=== PATIENT | male | born 1990 | race Caucasian/White ===

== ENCOUNTER 2016-03-21 20:15 | Emergency (ER) | payer BC ==
[~2016-03-21] VITALS: Ht 188 cm; Wt 78.5 kg
[~2016-03-21 20:15] MED LIST: HYDR0.1S10 PO; ONDA8TAB62 SL
[2016-03-21 20:17] VITALS: TEMP 36.8; Ht 188 cm; Wt 78.5 kg
[2016-03-21] MEDS ORDERED: MESA10002 PR (20:46)
[2016-03-21] MEDS ORDERED: IBUP-1050 PO (20:48)
[2016-03-21] MEDS ORDERED: ONDANSETRON INJ 2 MG/ML 2 ML VIAL IV STA (21:38)
[2016-03-21] MEDS ORDERED: SODIUM CHLORIDE 0.9% 1000ML 1,000 ML IV STA ×2 (21:38)
[2016-03-21] MEDS ORDERED: OPTIRAY 320 IV PRN (21:45)
[2016-03-21] MEDS ORDERED: PANTOprazole INJ 80 MG in DEXTROSE 5% 100ML IV STA (21:49)
[2016-03-21 21:57] VITALS: O2SAT 98
[2016-03-21 22:00] LABS: BASO % 0.9 %; BASO ABS # 0.05 K/uL (0-0.2); COMPLETE YES; EOS % 2.6 %; HEMATOCRIT 44.8 % (42-52); IG% 0.2 %; LYMPH % 31.6 %; LYMPH ABS # 1.68 K/uL (1.2-3.4); MEAN CELL VOLUME 90.9 fL (80-100); MEAN CORPUSCULAR HGB CONC 35.3 g/dl (32-36); MEAN PLATELET VOLUME 9.8 fL (7.4-10.4); MONO % 10.2 %; NEUT % 54.5 %; PLATELET COUNT 272 K/uL (130-400); RED BLOOD COUNT 4.93 M/uL (4.7-6.1); WHITE BLOOD COUNT 5.32 K/uL (4.8-10.8)
[2016-03-21] MEDS ORDERED: PANTOprazole INJ 40 MG in DEXTROSE 5% 100ML IV SCH (22:00)
[2016-03-21 22:07] LABS: ALT/SGPT 18 U/L (12-78); BLOOD UREA NITROGEN 11 mg/dl (7-18); BUN/CREATININE RATIO 12.4 (10-20); C-REACTIVE PROTEIN < 0.29 mg/dl (0-0.29); CALCIUM 9.5 mg/dl (8.5-10.1); CARBON DIOXIDE 25 mmol/L (21-32); CHLORIDE 107 mmol/L (98-107); CREATININE 0.89 mg/dl (0.60-1.40); GLUCOSE 86 mg/dl (70-99); POTASSIUM 3.6 mmol/L (3.5-5.1); SODIUM 140 mmol/L (136-145)
[2016-03-21 22:10] LABS: INR 1.1 (0.9-1.1); PARTIAL THROMBOPLASTIN RATIO 1.1; PROTHROMBIN TIME (PATIENT) 11.4 SECONDS (9.0-12.0)
[2016-03-21 22:11] LABS: ALKALINE PHOSPHATASE 74 U/L (45-117); AST/SGOT 23 U/L (15-37)
[2016-03-21 23:13] LABS: URINE APPEARANCE CLEAR (CLEAR); URINE BILIRUBIN NEG (NEG); URINE COLOR YELLOW; URINE NITRITE NEG (NEG); URINE SPECIFIC GRAVITY 1.019 (1.000-1.030); UROBILINOGEN NEG (NEG)
[2016-03-21 23:14] LABS: MANUAL MICROSCOPIC REQUIRED? NO; REVIEW REQ? NO
[2016-03-22] MEDS ORDERED: PANT40TA PO (01:46)
--- NOTE | 2016-03-22 01:46 | EMERGENCY ROOM VISIT NOTE ---
History First contact with patient: 21:28 Chief Complaint: ABDOMINAL PAIN Stated Complaint: BLOOD IN STOOL,LIGHTHEADED,VOMITING SOME BLOOD History of Present Illness The patient is a 25 year old male who presents to the Emergency Room with complaints of blood and mucus in stool that is brown stool who vomited today that had some red foam to it and was dark in nature. Patient also feels lightheaded and has some left-sided abdominal pain. Patient has ulcerative colitis but has not been following up as scheduled as he cannot financially afford it. He follows with Uma[facility] PATH[facility]. Patient describes a dull pain as aching , ranging in severity 5 out of 10. Nothing makes it better or worse. Patient drank a lot of coffee. No black stool. No other episodes of vomiting. No diarrhea. No recent antibiotics. Colonoscopy last year showed some polyps. Patient occasionally takes his ulcerative colitis medication but has difficulties financially afford it. Patient denies chest pain, dyspnea, fever, chills, diarrhea, urinary symptoms. Review of Systems See HPI for pertinent positives & negatives. A total of 10 systems reviewed and were otherwise negative. Past Medical/Surgical History Medical Problems: (1) Seizures (2) Stomach problems (3) Ulcerative colitis Surgical Problems: (1) H/O colonoscopy (2) History of wisdom tooth extraction (3) S/P tonsillectomy Family History Cancer Diabetes mellitus Gallbladder disease Heart disease Hypertension Kidney disease Kidney stones Lung disease Seizures Social History Smoking Status: Former Smoker Alcohol Use: occasionally Drug Use: none Marital Status: single Housing Status: lives with roommate Occupation Status: employed Current/Historical Medications Scheduled PRN Ibuprofen (Advil), 200 MG PO Q4H PRN for Pain Mesalamine (Canasa), 1,000 MG DC HS PRN for INFLAMMATION Allergies Coded Allergies: Penicillins (Verified Allergy, Unknown, rash, 05/24/15) Physical Exam Vital Signs Date Time Temp Pulse Resp B/P Pulse Ox O2 Delivery O2 Flow Rate FiO2 03/22/16 01:00 78 16 132/64 99 Room Air 03/21/16 23:32 92 16 105/81 98 Room Air 03/21/16 22:04 88 03/21/16 21:57 88 16 154/90 100 Room Air 03/21/16 21:57 98 Room Air 03/21/16 20:17 36.8 86 20 135/93 97 Room Air Physical Exam VITALS: Vitals are noted on the nurse's note and reviewed by myself. Vital signs stable. GENERAL: Pleasant male, in no acute distress, nondiaphoretic, well-developed well-nourished. SKIN: The skin was without rashes, erythema, edema, or bruising. There is no tenting of the skin. Capillary reflex less than 2 seconds. HEAD: Normocephalic atraumatic. EARS: External auditory canals clear, tympanic membranes pearly shaw without erythema or effusion bilaterally. EYES: Pupils equal round and reactive to light and accommodation. Conjunctivae without injection, sclerae without icterus. Extraocular movements intact. NOSE: Patent, turbinates without inflammation or discharge. MOUTH: Mucous membranes moist. Pharynx without erythema or exudate. Uvula midline. Airway patent. Tongue does not deviate. NECK: Supple without nuchal rigidity. No lymphadenopathy. No thyromegaly. Cervical spine is nontender. No JVD. HEART: Regular rate and rhythm without murmurs gallops or rubs. LUNGS: Clear to auscultation bilaterally without wheezes, rales or rhonchi. No dullness to percussion. No retractions or accessory muscle use. ABDOMEN: Positive bowel sounds x 4. Normal tympanic percussion. Soft, tender to palpation left side of abdomen, without masses or organomegaly. Cruz sign negative. No guarding or rebound tenderness. No CVA tenderness Rectal exam: Brown stool guaiac-negative sas programmer analyst present. No fissures or tears MUSCULOSKELETAL: No muscle atrophy, erythema, or edema noted. NEURO: Patient was alert and oriented to person place and time. Normal sensation to light and sharp touch. No focal neurological deficits. Medical Decision & Procedures Laboratory Results 03/21/16 20:25 Red Blood Count 4.93, Mean Corpuscular Volume 90.9, Mean Corpuscular Hemoglobin 32.0, Mean Corpuscular Hemoglobin Concent 35.3, Mean Platelet Volume 9.8, Neutrophils (%) (Auto) 54.5, Lymphocytes (%) (Auto) 31.6, Monocytes (%) (Auto) 10.2, Eosinophils (%) (Auto) 2.6, Basophils (%) (Auto) 0.9, Neutrophils # (Auto ) 2.90, Lymphocytes # (Auto) 1.68, Monocytes # (Auto) 0.54, Eosinophils # (Auto ) 0.14, Basophils # (Auto) 0.05 03/21/16 20:25 Test 03/21/16 20:25 03/21/16 22:01 03/21/16 23:00 White Blood Count 5.32 K/uL (4.8-10.8) Red Blood Count 4.93 M/uL (4.7-6.1) Hemoglobin 15.8 g/dL (14.0-18.0) Hematocrit 44.8 % (42-52) Mean Corpuscular Volume 90.9 fL (80-100) Mean Corpuscular Hemoglobin 32.0 pg (25-34) Mean Corpuscular Hemoglobin Concent 35.3 g/dl (32-36) Platelet Count 272 K/uL (130-400) Mean Platelet Volume 9.8 fL (7.4-10.4) Neutrophils (%) (Auto) 54.5 % Lymphocytes (%) (Auto) 31.6 % Monocytes (%) (Auto) 10.2 % Eosinophils (%) (Auto) 2.6 % Basophils (%) (Auto) 0.9 % Neutrophils # (Auto) 2.90 K/uL (1.4-6.5) Lymphocytes # (Auto) 1.68 K/uL (1.2-3.4) Monocytes # (Auto) 0.54 K/uL (0.11-0.59) Eosinophils # (Auto) 0.14 K/uL (0-0.5) Basophils # (Auto) 0.05 K/uL (0-0.2) RDW Standard Deviation 40.4 fL (36.4-46.3) RDW Coefficient of Variation 12.1 % (11.5-14.5) Immature Granulocyte % (Auto) 0.2 % Immature Granulocyte # (Auto) 0.01 K/uL (0.00-0.02) Erythrocyte Sedimentation Rate 2 mm/hr (0-14) Prothrombin Time 11.4 SECONDS (9.0-12.0) Prothromb Time International Ratio 1.1 (0.9-1.1) Activated Partial Thromboplast Time 27.5 SECONDS (21.0-31.0) Partial Thromboplastin Ratio 1.1 Anion Gap 8.0 mmol/L (3-11) Est Creatinine Clear Calc Drug Dose 140.9 ml/min Estimated GFR () 137.7 Estimated GFR (Non- 118.8 BUN/Creatinine Ratio 12.4 (10-20) Calcium Level 9.5 mg/dl (8.5-10.1) Magnesium Level 2.0 mg/dl (1.8-2.4) Total Bilirubin 1.0 mg/dl (0.2-1) Direct Bilirubin 0.2 mg/dl (0-0.2) Aspartate Amino Transf (AST/SGOT) 23 U/L (15-37) Alanine Aminotransferase (ALT/SGPT) 18 U/L (12-78) Alkaline Phosphatase 74 U/L (45-117) C-Reactive Protein < 0.29 mg/dl (0-0.29) Total Protein 8.2 gm/dl (6.4-8.2) Albumin 5.0 gm/dl (3.4-5.0) Lipase 66 U/L (73-393) Bedside Lactic Acid Venous 1.11 mmol/L (0.90-1.70) Urine Color YELLOW Urine Appearance CLEAR (CLEAR) Urine pH 6.0 (4.5-7.5) Urine Specific [place] 1.019 (1.000-1.030) Urine Protein NEG (NEG) Urine Glucose (UA) NEG (NEG) Urine Ketones 1+ (NEG) Urine Occult Blood NEG (NEG) Urine Nitrite NEG (NEG) Urine Bilirubin NEG (NEG) Urine Urobilinogen NEG (NEG) Urine Leukocyte Esterase NEG (NEG) Medications Administered Medications (Trade) Dose Ordered Sig/Moni Route Start Time Stop Time Status Last Admin Dose Admin Sodium Chloride 1,000 ml @ 999 mls/hr Q1H1M STAT IV 03/21/16 21:38 03/21/16 22:38 DC 03/21/16 21:54 999 MLS/HR Sodium Chloride (Nss 1000ml) 1,000 ml @ 200 mls/hr Q5H STAT IV 03/21/16 21:38 03/22/16 02:37 03/21/16 22:40 200 MLS/HR Ondansetron HCl 4 mg 4 mg NOW STAT IV 03/21/16 21:38 03/21/16 21:43 DC 03/21/16 21:53 4 MG Pantoprazole Sodium 80 mg/ Dextrose 120 ml @ 480 mls/hr NOW STAT IV 03/21/16 21:49 03/21/16 22:03 DC 03/21/16 22:22 480 MLS/HR Pantoprazole Sodium/Dextrose (Protonix Inj/D5 100ml) 100 ml @ 20 mls/hr Q5H IV 03/21/16 22:00 03/22/16 02:59 03/21/16 22:40 20 MLS/HR ED Course Prior records/ancillary studies reviewed. Triage Nursing notes reviewed. Additional history obtained from friends. The patient's history was concerning for abdominal pain. Differential diagnosis: Etiologies such as exacerbation of ulcerative colitis, appendicitis, diverticulitis, PUD, biliary pathology, UTI, pancreatitis, obstruction, mesenteric ischemia, aortic pathology, infections, inflammatory bowel disease, renal colic, as well as others were entertained. Physical examination findings: As above. ER treatment provided: IV fluids, Protonix On reassessment the patient felt better. Diagnostics interpreted by me: ECG: Normal sinus, normal intervals, no acute ST-T wave changes. Impression normal sinus rhythm interpreted by myself The labs revealed stable H&H. No worrisome leukocytosis. Imaging studies: CT ABDOMEN & PELVIS: Small intussusception in the right mid abdomen presumed incidental and transient. No secondary obstruction. Unremarkable appendix. No colitis. Solid organs are within normal limits Radiologist: Di Suero M.D. Consultation: A consultation was placed with the surgeon, Dr. Ross. The case was discussed and diagnostics were reviewed. He recommends that the patient follow- up with his rn documentation in the next few days. He states the CT findings are incidental. Exam and history seem consistent with patient's known ulcerative colitis. He was well-appearing. Stable H&H. No white count. negative lactic acid. He was strongly encouraged to see his GI doctor this week for further evaluation and workup. He was advised to return to the ER immediately for abdominal pain, fevers, vomiting, the rectal bleeding, worsening signs or symptoms or as needed.By the evaluation outlined above emergent etiologies such as appendicitis , diverticulitis, PUD, biliary pathology, UTI, pancreatitis, obstruction, mesenteric ischemia, aortic pathology, infections, renal colic, as well as others were deemed relatively unlikely. The pt informed about the findings as listed above. All questions were answered and pleased with the treatment. Return instructions were outlined and the patient was discharged in stable condition. Outpatient prescription management: protonix Referral: The patient was referred back to their rn documentation and primary care physician for follow-up in 2 to 3 days for a recheck of the current condition. Case reviewed with my attending. Medical Decision As above Impression Primary Impression: Hematochezia Additional Impressions: Abdominal pain, left upper quadrant Vomiting Intussusception Departure Information Dispostion Home / Self-Care Condition GOOD Referrals JOSE MCCARTHY (PCP) Patient Instructions My [facility] Additional Instructions Protonix 40 m tablet daily for the next 2 weeks. Take this on empty stomach. Acetaminophen(Tylenol) may be used for fever or pain. Use 1000mg every six hours as needed. Avoid using more than 3000mg in a 24 hour period. Rest and drink plenty of fluids as tolerated. Continue current medications. Avoid strenuous activities and anything that worsens your pain. Resume normal activities once your symptoms resolve. Return to the ER immediately for worsening or persistent rectal bleeding, black stool, abdominal pain, vomiting, fevers, chest pains, difficulty breathing, worsening of your condition, or as needed. Follow up with your rn documentation in 2-3 days for a recheck of your current condition. Problem Qualifiers
[2016-03-22 01:48] VITALS: BP 131/81; PULSE 86; O2SAT 99
[2016-03-22] MEDS ORDERED: PANTOprazole SOD 40 MG TAB PO STA (01:56)
--- NOTE | 2016-03-22 07:27 | DIAGNOSTIC IMAGING REPORT ---
ABDOMEN AND PELVIS CT WITH IV AND ORAL CONTRAST CT DOSE: 356.50 mGy.cm HISTORY: Lower abdominal pain. Ulcerative colitis. TECHNIQUE: Multiaxial CT images of the abdomen and pelvis were performed following the use of intravenous and oral contrast. COMPARISON STUDY: None. FINDINGS: The lung bases are clear. The liver, gallbladder, pancreas, kidneys, and adrenal glands are within normal limits. No bowel wall thickening or obstruction. The pelvic organs are unremarkable. No suspicious lytic or blastic osseous lesions. There is a small intussusception within the right mid abdomen which is considered incidental and transient. Contrast easily flows through this area without obstruction. Normal appendix. The spleen is mildly enlarged measuring 13 cm in length. IMPRESSION: 1. No bowel wall thickening or obstruction. 2. Normal appendix. 3. Mild splenomegaly. Electronically signed by: Andreas Lerner M.D. 03/22/2016 7:25 AM Dictated Date/Time: 03/22/2016 7:20 AM
--- NOTE | 2016-03-22 07:44 | CONSULTATION REPORT ---
DATE OF CONSULTATION: 03/21/2016 PHONE CONSULTATION I was called by Loraine Montiel PA-C in the Emergency Room at approximately 1:30 this morning for a 25-year-old gentleman that has some abdominal pain, left upper quadrant with a history of ulcerative colitis and rectal bleeding. Was worked up by CAT scan and found to have an incidental intussusception. The physician school health assistant stated the patient was completely asymptomatic at this time. His lab work was all within normal limits. There was no evidence of any acute bleeding and actually he had guaiac negative on rectal exam. At this point, I tried reviewing the CAT scan at home, was not able to identify the report for incidental session, but the plan was for the patient if he was completely asymptomatic and was followed up with his ulcerative colitis in [place] to follow up with their GI physicians there. I did review the CAT scan just [address] Joya and the finding was a very incidental intussusception in the mid small bowel. There is no evidence of any obstruction. Contrast goes freely beyond that. We will be glad to see the patient any time in the future if there is any new issues, but at this time the plan is for the patient to follow up with GI in [place].
== END 2016-03-22 02:00 | disposition home or self-care (01) ==
LOC: C.EDB 20:16 → C.EDA 03-22 02:00
DX: K92.1 Melena (principal); R10.12 Left upper quadrant pain; R11.10 Vomiting, unspecified; K56.1 Intussusception; Z87.19 Personal history of other diseases of the digestive system; Z87.891 Personal history of nicotine dependence; Z83.3 Family history of diabetes mellitus; Z82.49 Family history of ischemic heart disease and other diseases of the circulatory system; Z84.1 Family history of disorders of kidney and ureter; Z84.89 Family history of other specified conditions